=== PATIENT | male | born 1950 | race Caucasian/White ===

== ENCOUNTER 2023-07-03 08:32 | Emergency (ER) | payer MEDICARE, OTHER, SELFPAY ==
[2023-07-03 08:35] VITALS: BP 145/85
--- NOTE | 2023-07-03 09:40 | ED.GENMED ---
History of Present Illness
General
Chief Complaint: Musculo-Skeletal Complaint
Source: patient
Exam Limitations: none
Time Seen by Provider: 07/03/23 09:09
Nursing documentation reviewed up to this point in time: agreed with
Travel History
Have you had any contact with someone who has COVID-19?: No
Do you have any symptoms of coronavirus? Fever > 100 degrees, chills, cough, shortness of breath, sore throat, loss of taste or smell, muscle aches, or headache?: No
History of Present Illness
History of Present Illness:
72-year-old male presents to the ER for evaluation of back pain. Patient reports 4 days ago he fell in his kitchen and landed on his back. 2 days ago however he lifted a 5 gallon tub of soap and felt a pulling sensation in his right lower back.
Since then he has a pain in his right lower back that radiates down his right leg into his right calf. He also feels a little tingling in his right leg he denies any loss of bowel or bladder. Has been taking ibuprofen without relief. He denies
any incontinence of bowel bladder.
Past History
Past History
ED Past Medical History: HTN
ED Past Surgical History: Bowel resection (Partial colon removed and rectum), Orthopedic ([place] shoulder surg) and Other (Hernia, Sinus surg)
Patient has exhibited threatening behavior?: No
Social History
Tobacco: Other (Occasional cigar)
Alcohol: Daily
Drug: None
Personal:
Living: with family
Employment: Employed
Family History
Family History: Hypertension
Review of Systems
Review of Systems
Allergies reviewed?: Yes
All Other Systems: ROS reviewed and negative except as documented in HPI and ROS
Constitutional: Reports no symptoms; Denies fever, fatigue or chills
Respiratory: Reports no symptoms
Cardiac: Reports no symptoms
ABD/GI: Reports no symptoms
: Denies incontinence
Musculoskeletal: Reports back pain and other (Back pain rating down right leg)
Skin: Reports no symptoms
Psychiatric: Reports no symptoms
Phy Exam
General Physical Exam
General Presentation: no apparent distress
General age: appears stated age
General Skin: warm and dry
General Habitus: normal
General Mental: alert
General Hydration: appears well hydrated
Gastrointestinal Exam
Gastrointestinal Exam: non tender and soft
Neurological Exam
Neurological Exam: alert, oriented x3 and other (Normal distal sensation to bilateral lower extremities normal dorsiflexion plantarflexion)
Musculoskeletal Exam
Musculoskeletal Exam: other (Normal inspection to back mild tenderness to right paralumbar muscle region no bony midline tenderness, normal inspection of erythema)
Skin Exam
Skin Exam: normal color and warm/dry
Psychiatric Exam
Psychiatric Exam: normal mood/affect
Course
Orders/Labs/Results
Orders:
Orders
07/03/23 09:37
Lumbar Spine Complete, 4 View [CR Lumbar Spine Comp Min 4 Vw*] Urgent
Comment:
Reason For Exam: trauma
07/03/23 09:39
Dexamethasone Sod Phosphate [Decadron] 10 mg IM NOW STA
Lidocaine [Lidocaine 4% Patch] 1 patch TOPICAL NOW STA
diazePAM [Valium Injection] 5 mg IM NOW STA
07/03/23 09:40
Acetaminophen [Tylenol] 1,000 mg PO NOW STA
Vital Signs
Initial and Last Documented VS:
Initial Vital Signs
Temp Pulse Resp BP Pulse Ox
98.7 F 70 16 145/85 98
07/03/23 08:35 07/03/23 08:35 07/03/23 08:35 07/03/23 08:35 07/03/23 08:35
Last Documented Vital Signs
Temp Pulse Resp BP Pulse Ox
98.7 F 61 16 152/84 97
07/03/23 08:35 07/03/23 10:17 07/03/23 10:17 07/03/23 10:17 07/03/23 10:17
MDM/Problems Addressed
Differential Diagnosis Includes:
Not limited to muscle sprain strain, sciatica, lumbar compression fracture
MDM/Problems Addressed:
Symptoms are consistent with lumbar strain with sciatica. Patient has had some relief with Decadron Valium here in the ER. He is not drowsy. He has no neurological deficits. Will DC on steroids for the next 5 days with muscle relaxer close
outpatient follow-up PCP.
*Radiology
Radiology exam reviewed: radiology read reviewed
*Pulse Oximetry
Patient hypoxic: no
*Critical Care Note
Total Time (30-74mins, 75-104mins- exclusive of procedures): Not Applicable
ED Attending Note
-
Portions of this chart may have been created with voice recognition software.� Occasional wrong word or��sound alike� substitutions may have occurred due to the inherent limitations of voice recognition software.
Discharge Plan
Departure
Patient Disposition: Home (Routine Discharge)
Date of Disposition: 07/03/23
Time of Disposition: 11:27
Patient with high blood pressure during this ER visit?: Yes
Covid-19: Not Applicable
Discharge Problem:
Lumbar strain, Sciatica
Instructions: Low Back Pain (DC), Sciatica (DC), BLOOD PRESSURE
Prescriptions:
New
prednisone 50 mg tablet
50 mg PO DAILY Qty: 5 0RF
diazepam [Valium] 5 mg tablet
5 mg PO TID PRN (Reason: muscle spasm) Qty: 10 0RF
No Action
lisinopril 20 MG tablet
20 mg PO DAILY
Vitamin B-12
1 tab PO Q48H
Referrals:
Juancho Lynch MD [Family Provider] -
Activity Restrictions/Additional Instructions:
As discussed symptoms are consistent muscle strain, sciatica. You were given steroids here in the ER as well as Valium. A prescription for steroids as well as Valium was sent to pharmacy. Start prednisone, (steroid) tomorrow once daily for the
next 5 days. You may take Valium 5 mg every 8 hours only as needed. This medication will cause drowsiness. No driving or drinking alcohol on medication.
Follow-up close with family doctor in the next several days for reevaluation. Return if any worsening of symptoms of increased pain in his lower extremities loss of bowel or bladder or any further concerns
Interventions
Interventions:
*Risk Screen - Suicide Last Done: 07/03/23 08:35
*General Assessment Last Done: 07/03/23 08:35
*Neglect/Abuse Screening Last Done: 07/03/23 08:35
ED- Fall Risk Assessment Last Done: 07/03/23 08:54
*ED COVID-19 Vaccine History Last Done: 07/03/23 08:45
ED-Musculoskeletal Assessment Last Done: 07/03/23 08:53
[2023-07-03] MEDS: DECADRON 10 MG IM (10:09)
[2023-07-03] MEDS: TYLENOL 1000 MG PO (10:09)
[2023-07-03] MEDS: VALIUM INJECTION 5 MG IM (10:09)
[2023-07-03] MEDS: LIDOCAINE 4% PATCH 1 PATCH TOPICAL (10:09)
[2023-07-03 10:17] VITALS: BP 152/84
[2023-07-03 11:34] VITALS: BP 151/87
== END 2023-07-03 11:43 | disposition home or self-care (01) ==
LOC: EMR 08:32
PROVIDERS: EMERGENCY PHYSICIAN Emergency Medicine; FAMILY PHYSICIAN Family Medicine
DX: S39.012A Strain of muscle, fascia and tendon of lower back, initial encounter (principal); M54.40 Lumbago with sciatica, unspecified side; X58.XXXA Exposure to other specified factors, initial encounter; I10 Essential (primary) hypertension; Z82.49 Family history of ischemic heart disease and other diseases of the circulatory system
CPT/HCPCS: 99283; 96372; 72110

== ENCOUNTER → 2023-07-12 14:24 | Outpatient (REF) | payer MEDICARE, OTHER, SELFPAY | LOC: RAD 14:24 | PROVIDERS: ATTENDING PHYSICIAN Nurse Practitioner Family | DX: M79.661 Pain in right lower leg (principal) | CPT/HCPCS: 93971 ==

== ENCOUNTER → 2024-12-07 07:19 | Outpatient (REF) | payer MEDICARE, OTHER, SELFPAY | LOC: HWRAD 07:19 | PROVIDERS: ATTENDING PHYSICIAN Family Medicine | DX: R74.8 Abnormal levels of other serum enzymes (principal) | CPT/HCPCS: 76700 ==